=== PATIENT | female | born 1940 | race Caucasian/White ===

== ENCOUNTER 2018-05-11 12:52 | Inpatient (IN) | payer OTHER ==
[~2018-05-11] VITALS: Ht 167.6 cm; Wt 58.7 kg
[~2018-05-11 12:52] MED LIST: AMIODORONE; LORA-655 PO; MET25T PO
[2018-05-11 13:00] VITALS: BP 112/60
[2018-05-11] MEDS ORDERED: HYDROcodone-ACET 5/325MG TAB PO PRN (13:15)
[2018-05-11] MEDS ORDERED: FUROSEMIDE 20 MG/2 ML VIAL IV ONE (13:30)
[2018-05-11] MEDS ORDERED: POTASSIUM CHL 20 Meq TABLET PO ONE (13:30)
[2018-05-11 14:30] VITALS: BP 116/68
[2018-05-11] MEDS ORDERED: AMOX500T86 PO ×2 (15:47→15:59)
[2018-05-11] MEDS ORDERED: MISC4CAP PO (15:47)
[2018-05-11] MEDS: CEPHALEXIN 250 MG CAP PO SCH ×2 (16:49→22:00)
[2018-05-11 17:00] VITALS: BP 115/50
[2018-05-11 17:34] LABS: Basophils # (auto) 0 uL; Basophils % (auto) 0.4 % (0.0-2.0); Eosinophils # (auto) 0.2 uL; Eosinophils % (auto) 1.8 % (0.0-7.0); Hematocrit 37.8 % (36.0-46.0); Hemoglobin 12.4 g/dL (12.2-16.2); Lymphocytes # (auto) 1.9 uL; Lymphocytes % (auto) 17.1 % (10.0-50.0); Mean Corpuscular Hemoglobin 31.8 pg (28.0-32.0); Mean Corpuscular Hgb Conc. 32.9 g/dL (32.0-36.0); Mean Corpuscular Volume 96.7 fL (80.0-100.0); Monocytes # (auto) 0.9 uL; Monocytes % (auto) 8.2 % (0.0-12.0); Neutrophils % (auto) 72.5 % (37.0-80.0); Nucleated Red Blood Cells % 0.1 %; Platelet Count (auto) 230 10^3/uL (140-450); Red Blood Cells 3.91 10^6/uL (4.0-5.20); Red Cell Distribution Width 14.3 % (11.8-14.3)
[2018-05-11 17:35] LABS: INR 0.96 (0.9-1.15); Partial Thromboplastin Time 27.5 sec (23.78-33.04); Prothrombin Time 10.3 sec (9.27-12.13)
[2018-05-11 17:39] LABS: Albumin 3.3 g/dL (3.4-5.0); Bilirubin, Total 0.4 mg/dL (0.2-1.0); Calcium 8.2 mg/dL (8.5-10.1); Potassium 3.2 mmol/L (3.5-5.1); Total Protein 8.1 g/dL (6.4-8.2)
[2018-05-11 22:00] VITALS: BP 106/51
[2018-05-11] MEDS ORDERED: traZODone HCL 50 MG TAB PO SCH (22:00)
[2018-05-12] MEDS ORDERED: DIGO0.1262 PO (02:45)
[2018-05-12] MEDS ORDERED: ASPI81TA27 PO (02:45)
[2018-05-12] MEDS ORDERED: CLON1TAB4 PO (02:45)
[2018-05-12] MEDS ORDERED: ACET-1156 PR (02:45)
[2018-05-12] MEDS ORDERED: SERT25TA84 PO (02:45)
[2018-05-12] MEDS ORDERED: FAM20T PO (02:45)
[2018-05-12] MEDS ORDERED: LOPE2CAP PO (02:45)
[2018-05-12] MEDS ORDERED: POTA10TA51 PO (02:45)
[2018-05-12] MEDS ORDERED: TRAZ50TA2 PO (02:45)
[2018-05-12] MEDS ORDERED: PRO10T PO (02:45)
[2018-05-12] MEDS ORDERED: DEXT1LIQ32 PO (02:45)
[2018-05-12] MEDS ORDERED: GABA300C10 PO (02:45)
[2018-05-12] MEDS ORDERED: IBUP400T21 PO (02:45)
[2018-05-12] MEDS ORDERED: MORP15TA PO (02:45)
[2018-05-12] MEDS ORDERED: BISA10SU12 RE (02:45)
[2018-05-12] MEDS ORDERED: HAL5T PO (02:45)
[2018-05-12] MEDS ORDERED: AMIO200T33 PO (02:45)
[2018-05-12] MEDS ORDERED: FURO40TA PO (02:45)
[2018-05-12] MEDS ORDERED: HYDR-4683 PO (02:45)
[2018-05-12 05:00] VITALS: BP 117/58
[2018-05-12] MEDS: CEPHALEXIN 250 MG CAP PO SCH (05:19)
[2018-05-12 09:00] VITALS: BP 120/52
[2018-05-12] MEDS ORDERED: POTASSIUM CHL 20 Meq TABLET PO SCH (10:00)
[2018-05-12] MEDS ORDERED: AMIODARONE HCL 200 MG TAB PO SCH (10:00)
[2018-05-12] MEDS ORDERED: DIGOXIN 0.125 MG TAB PO SCH (10:00)
[2018-05-12] MEDS ORDERED: ASPirin 81 mg TAB PO SCH (10:00)
[2018-05-12] MEDS ORDERED: SERTRALINE HCL 50 MG TAB PO SCH (10:00)
[2018-05-12] MEDS ORDERED: FUROSEMIDE 40 MG TAB PO SCH (10:00)
[2018-05-12] MEDS ORDERED: FAMOTIDINE 20 MG TAB PO SCH (10:00)
[2018-05-12] MEDS ORDERED: GABAPENTIN 300 MG CAP PO SCH (10:00)
== END 2018-05-12 09:50 | disposition home health service (06) | DRG 291 ==
LOC: WEST WING 12:52
PROVIDERS: ADMIT Internal Medicine; ATTEND Internal Medicine
DX: I50.43 Acute on chronic combined systolic (congestive) and diastolic (congestive) heart failure (principal); L89.153 Pressure ulcer of sacral region, stage 3; L97.429 Non-pressure chronic ulcer of left heel and midfoot with unspecified severity; L97.919 Non-pressure chronic ulcer of unspecified part of right lower leg with unspecified severity; F03.90 Unspecified dementia, unspecified severity, without behavioral disturbance, psychotic disturbance, mood disturbance, and anxiety; M41.9 Scoliosis, unspecified; I73.9 Peripheral vascular disease, unspecified; I48.91 Unspecified atrial fibrillation; J44.9 Chronic obstructive pulmonary disease, unspecified; Z88.0 Allergy status to penicillin; Z88.5 Allergy status to narcotic agent
CPT/HCPCS: 36415; 71045; 80053; 80162; 85025; 85610; 85730; 87081; 93306

== ENCOUNTER 2019-06-21 08:17 | Inpatient (IN) | payer MEDICARE ==
[~2019-06-21] VITALS: Ht 162.6 cm; Wt 56.4 kg
--- NOTE | 2019-06-21 08:15 | NUR ---
Direct Admit Note: SANTO KNAPP admitted to [facility] unit as a direct admit per MD order. Patient oriented to ZEE POE, RN primary RN, unit, room, bed, and unit policies regarding patient care and visiting hours. Patient weighed by bedscale and encouraged to call if they need something. All questions and concerns addressed, patient verbalized understanding. MD notified of patients arrival.
[~2019-06-21 08:17] MED LIST changes: +ACET-1156 PR; +AMIO200T33 PO; -AMIODORONE; +AMOX500T86 PO; +ASPI-404 PO; +BISA10SU12 RE; +CLON1TAB10 PO; +DEXT1LIQ PO; +DIGO0.1262 PO; +FAM20T PO; +FURO1TAB31 PO; +GABA300C10 PO; +HAL5T PO; +HYDR-4833 PO; +IBUP400T21 PO; +LOPE2CAP PO; -LORA-655 PO; -MET25T PO; +MISC4CAP PO; +MORP15TA PO; +POTA10TA51 PO; +PRO10T PO; +SERT25TA84 PO; +TRAZ50TA2 PO
--- NOTE | 2019-06-21 08:25 | NUR ---
Dr. Sanz paged for orders.
--- NOTE | 2019-06-21 08:35 | NUR ---
Dr. Sanz called back with one order. Stated he would place more once he rounded on the patient.
[2019-06-21 08:58] VITALS: BP 148/61
[2019-06-21 09:00] VITALS: BP 148/61
[2019-06-21 13:00] VITALS: BP 110/55
[2019-06-21] MEDS ORDERED: POTASSIUM CHL 20 Meq TABLET PO ONE (13:00)
[2019-06-21] MEDS ORDERED: ACETAMINOPHEN 500 MG TAB PO PRN (13:00)
[2019-06-21] MEDS ORDERED: FUROSEMIDE 40 MG TAB PO ONE (13:00)
[2019-06-21] MEDS ORDERED: HYDROcodone-ACET 5/325MG TAB PO PRN (13:00)
--- NOTE | 2019-06-21 13:55 | NUR ---
IV insertion: IV access obtained, via clean sterile technique by inserting 22 gauge catheter at left forearm after 1 attempt. IV secured properly. No trauma to site. Patient tolerated well.
[2019-06-21 14:00] LABS: Basophils # (auto) 0 uL; Basophils % (auto) 0.5 % (0.0-2.0); Eosinophils # (auto) 0.2 uL; Eosinophils % (auto) 2.1 % (0.0-7.0); Hematocrit 40.1 % (36.0-46.0); Hemoglobin 13.6 g/dL (12.2-16.2); Lymphocytes # (auto) 2.2 uL; Lymphocytes % (auto) 22.5 % (10.0-50.0); Mean Corpuscular Hemoglobin 33.6 pg (28.0-32.0); Mean Corpuscular Volume 98.7 fL (80.0-100.0); Monocytes # (auto) 0.7 uL; Monocytes % (auto) 7.1 % (0.0-12.0); Neutrophils # (auto) 6.5 uL; Neutrophils % (auto) 67.8 % (37.0-80.0); Nucleated Red Blood Cells % 0.1 %; Platelet Count (auto) 268 10^3/uL (140-450); Red Blood Cells 4.06 10^6/uL (4.0-5.20); Red Cell Distribution Width 13.8 % (11.8-14.3); White Blood Cell 9.6 10^3/uL (4.4-10.8)
--- NOTE | 2019-06-21 14:08 | NUR ---
Admit EKG ordered by Dr. Paige. EKG performed ay 1404. Read by Dr. Hickey at 1411.
[2019-06-21 14:16] LABS: Albumin 2.7 g/dL (3.4-5.0); BUN/Creatinine Ratio 21.8; Calcium 8.1 mg/dL (8.5-10.1); Potassium 4.2 mmol/L (3.5-5.1)
[2019-06-21 14:19] LABS: Bilirubin, Total 0.3 mg/dL (0.2-1.0); Total Protein 6.8 g/dL (6.4-8.2)
--- NOTE | 2019-06-21 15:06 | NUR ---
Patient unable to recall list of home medications. Family asked to bring in list of home meds.
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
[2019-06-21 17:00] VITALS: BP 109/54
--- NOTE | 2019-06-21 18:26 | NUR ---
Attempted to obtain urine sample via bedpan. This nurse was unsuccessful. Will endorse to ROSA HENDRICKS.
--- NOTE | 2019-06-21 19:19 | NUR ---
MRSA swab collected and sent.
--- NOTE | 2019-06-21 19:20 | NUR ---
Closing note: Patient laying in bed. No S/S of pain, SOB or distess at this time. Even and unlabored breathing. Patient turned at this time. This nurse unable to obtain urine sample, endorsed to NOC RN. Care endorsed to NOC RN Patricia.
--- NOTE | 2019-06-21 19:21 | NUR ---
Opening Shift Note Received report from RN Asha and assumed care of patient, awake and alert x 1. No S/S of distress/SOB or pain. Instructed patient to call for assist if needed , call light within reach. Bed alarm on for safety. Will continue to monitor .
[2019-06-21 20:28] LABS: Urine Bacteria MANY /hpf (None Seen); Urine Blood 2+ /uL (Negative); Urine Mucus FEW (None Seen); Urine Specific Gravity 1.021 (1.001-1.035); Urine WBC 59 /hpf (0 - 5)
[2019-06-21 23:49] VITALS: BP 115/57
--- NOTE | 2019-06-22 02:21 | NUR ---
Patient bathe/linen change Patient had incontinent urine. Perineal care done .Skin integrity assessed for any changes. Linens changed. Patient repositioned for comfort.
[2019-06-22 05:47] VITALS: BP_SYST 116; BP_SYST 133; BP_DIAS 54; BP_DIAS 79
--- NOTE | 2019-06-22 06:10 | NUR ---
Pain: Patient c/o toothache but refused to take any pain medication.Will give report to incoming RN.
--- NOTE | 2019-06-22 07:20 | NUR ---
Open Shift Note Received report on patient, awake and sitting up in bed. Patient is confused on time of day but able to state name, place and situation. Patient reoriented to time and opened blinds to allow for light. Patient verbalized understanding but quickly stated again that she thought it was night time. Patient oriented to time of day and that breakfast would be arriving shortly. Patient verbalized understanding. Patient encouraged to press call light for assistance and if they have the urge to use the restroom. Bed in lowest locked position, side rails up x2 and call light within reach. Will continue to monitor.
[2019-06-22 09:00] VITALS: BP 112/47
[2019-06-22] MEDS ORDERED: GABAPENTIN 300 MG CAP PO SCH (10:00)
[2019-06-22] MEDS ORDERED: DIGOXIN 0.125 MG TAB PO SCH (10:00)
[2019-06-22] MEDS ORDERED: ASPirin 81 mg TAB PO SCH (10:00)
--- NOTE | 2019-06-22 10:22 | NUR ---
WOUND CARE NOTE: IN TO SEE PATIENT AT THIS TIME PER WOUND CARE CONSULT REQUEST. PATIENT WAS RECENTLY ADMITTED TO [facility] WITH DIAGNOSIS OF ALOC. SHE HAS CURRENT [place] SCORE OF 14. PATIENT IS INCONTINENT OF BOWEL AND BLADDER. SHE WEARS DIAPERS PER PATIENT STATEMENT. PATIENT EDUCATED IN WOUND CARE AND DIAPER USAGE AT THIS TIME, BUT PATIENT IS CONFUSED, TEACHING NOT SUCCESSFUL. PATIENT HAS MILD MASD WITH LIGHT RED ERYTHEMA NOTED TO SKIN ON PERINEUM, BUTTOCKS. SKIN REMAINS INTACT. MOISTURE BARRIER CREAM APPLIED, OPTIFOAM GENTLE SACRAL DRESSING APPLIED PREVENTATIVE. PATIENT WOULD BENEFIT FORM FREQUENT TURN SCHEDULE Q 2 HOURS, PRN CONDITION PERMITS, WITH PRESSURE REDISTRIBUTION USING PILLOWS/WEDGES, BID/PRN APPLICATION WITH MOISTURE BARRIER CREAM, OPTIFOAM GENTLE SACRAL DRESSING, SKIN/WOUND CARE PLAN, CONTINUED MONITORING BY WOUND CARE TEAM. Addendum: 06/22/19 at 1919 by Tracy Dill RN Amended: Links added.
[2019-06-22] MEDS: AMIODARONE HCL 200 MG TAB PO SCH (10:42)
[2019-06-22] MEDS: FAMOTIDINE 20 MG TAB PO SCH (10:42)
[2019-06-22] MEDS: SERTRALINE HCL 50 MG TAB PO SCH (10:43)
[2019-06-22] MEDS: POTASSIUM CHL 20 Meq TABLET PO SCH (10:43)
[2019-06-22] MEDS: FUROSEMIDE 40 MG TAB PO SCH (10:44)
[2019-06-22] MEDS ORDERED: cefTRIAXone 1GM/50ML D5W 50 ML IV ONE (11:45)
[2019-06-22 13:00] VITALS: BP 116/54
[2019-06-22 16:57] VITALS: BP 126/48
--- NOTE | 2019-06-22 18:59 | NUR ---
End of Shift Patient sitting up in bed, shows no signs of distress at this time. Bed in lowest locked position, side rails up x2 and call light within reach.
--- NOTE | 2019-06-22 20:05 | NUR ---
open note assumed care of pt. upon entering room pt awake, alert and disoriented. pt knows self, unable to state where she is, why she is here and what the date is. pt on room air, no distress noted. pt denies any pain. pt updated on plan of care, to which she listening passively. bed locked, low and 2x rails up. call light in reach, will round q1hr and prn.
[2019-06-22 22:19] VITALS: BP 116/71
--- NOTE | 2019-06-22 22:45 | NUR ---
pt cleansed and complete linen change after bed saturated with urine, pt tolerated well.
[2019-06-23 05:15] VITALS: BP 119/50
--- NOTE | 2019-06-23 07:25 | NUR ---
Open Shift Note Received report on patient, awake and sitting up in bed. Patient shows no signs of distress at this time. Patient states she remembers current nurse was her same nurse yesterday. Discussed POC with patient with reinforcement needed. Bed in lowest locked position, side rails up x2, call light within reach and bed alarm on. Will continue to monitor.
[2019-06-23] MEDS: cefTRIAXone 1GM/50ML D5W 50 ML IV SCH (08:38)
[2019-06-23 09:27] VITALS: BP 147/51
[2019-06-23] MEDS: FUROSEMIDE 40 MG TAB PO SCH (10:49)
[2019-06-23] MEDS: POTASSIUM CHL 20 Meq TABLET PO SCH (10:49)
[2019-06-23] MEDS: FAMOTIDINE 20 MG TAB PO SCH (10:49)
[2019-06-23] MEDS: SERTRALINE HCL 50 MG TAB PO SCH (10:50)
[2019-06-23] MEDS: AMIODARONE HCL 200 MG TAB PO SCH (10:50)
[2019-06-23 13:04] VITALS: BP 120/56
--- NOTE | 2019-06-23 14:12 | NUR ---
PT PATIENT REFUSED PHYSICAL THERAPY. ELADIO ALFONSO WAS NOTIFIED. Addendum: 06/23/19 at 1414 by ORSA SOLOMON PTT Amended: Links added.
--- NOTE | 2019-06-23 16:28 | NUR ---
IV Insertion IV inserted using clean sterile technique in to the right forearm 20g. Patient tolerated well. Infiltrated IV removed from left forearm using clean sterile technique, dressing applied. Patient anxious but tolerated well.
[2019-06-23 17:00] VITALS: BP 93/49
--- NOTE | 2019-06-23 18:47 | NUR ---
Closing Note Patient sitting up in bed eating dinner. Shows no signs of distress at this time. Bed in lowest locked position, side rails up x2 and call light within reach.
[2019-06-23 22:00] VITALS: BP 110/56
[2019-06-24 05:00] VITALS: BP 123/70
--- NOTE | 2019-06-24 08:05 | NUR ---
OPENING SHIFT NOTE: PATIENT ASLEEP RESTING IN BED. RESPIRATIONS EVEN AND UNLABORED. BED IN LOWEST LOCKED POSITION. PATIENT LYING LEFT SIDE. CALL LIGHT PLACED WITHIN REACH. UPDATED CARE BOARD, WILL CONTINUE TO MONITOR.
[2019-06-24] MEDS: AMIODARONE HCL 200 MG TAB PO SCH (09:04)
[2019-06-24] MEDS: cefTRIAXone 1GM/50ML D5W 50 ML IV SCH (09:04)
[2019-06-24] MEDS: POTASSIUM CHL 20 Meq TABLET PO SCH (09:05)
[2019-06-24] MEDS: SERTRALINE HCL 50 MG TAB PO SCH (09:06)
[2019-06-24] MEDS: FAMOTIDINE 20 MG TAB PO SCH (09:06)
[2019-06-24] MEDS: FUROSEMIDE 40 MG TAB PO SCH (09:06)
[2019-06-24 09:14] VITALS: BP 111/62
--- NOTE | 2019-06-24 09:49 | NUR ---
PT PATIENT REFUSED PHYSICAL THERAPY TODAY. ELADIO MCCRARY WAS NOTIFIED. Addendum: 06/24/19 at 0950 by ROSA SOLOMON PTT Amended: Links added.
--- NOTE | 2019-06-24 10:08 | NUR ---
PATIENT CARE: PATIENT UNDERPAD CHANGED. LIGHT CLEMENTINE URINE NOTED STRONG ODOR. PATIENT SUSPICIOUS OF CARE STATING, "ARE YOU TRYING TO POISON ME, I WANT TO TALK TO MY BROTHER." PATIENT EASILY RE-ORIENTED, CALM, AND GUARDED. WILL CONTINUE TO MONITOR, AND ASSESS SKIN FOR MAD.
[2019-06-24 13:08] VITALS: BP 125/61
--- NOTE | 2019-06-24 13:19 | NUR ---
Discharge planning per consult, patient has orders to dc to SNF down the [place] per request of family as patient has Dementia. Brother Mook had no preference, just closer to [place] where he resides as his plan is for placement near him upon her discharge from SNF. Referral was sent to [facility] [phone], placed a follow up call, spoke with Maritza and was advised that they will accept this patient into room [address] Garcia. Transportation was arranged with [facility] [phone] and scheduled production support engineer time is for 1600. Nurse Graf was advised of dc plan. Addendum: 06/24/19 at 1322 by TRENT BENSON Amended: Links added.
--- NOTE | 2019-06-24 13:36 | NUR ---
ATTEMPT MADE TO CONTACT NEXT OF KIN ON FILE. VOICEMAIL LEFT BY THIS RN.
--- NOTE | 2019-06-24 14:26 | NUR ---
SUCCESSFUL ATTEMPT TO REACH KRISTINA. MADE AWARE OF SNF TRANSFER FACILITY, TIME, AND BED ASSIGNMENT. KRISTINA TO ARRIVE AT ADMITTING FACILITY WHEN SISTER ARRIVES. THIS RN WILL NOTIFY WHEN PATIENT IS LEAVING VIA EMR.
--- NOTE | 2019-06-24 14:28 | NUR ---
REPORT GIVEN TO YOUNG HENDRICKS AT [facility].
--- NOTE | 2019-06-24 14:37 | NUR ---
DISCHARGE PAPERWORK UNABLE TO BE SIGNED BY PATIENT WHO IS A/OX1, OR PATIENT'S CAREGIVER. CO-SIGN OBTAINED BY SECOND RN.
--- NOTE | 2019-06-24 14:58 | NUR ---
assessment Patient is a 79 year old female who is confused. Prior to admission per patients brother Mook patient resided at [facility] assisted living in [place]. Per Mook patient has a wheelchair for home use. Per Mook patient receives 1020.00 per month. Mook is working with Darryl Wasserman of [facility] to obtain Medi-severino for patient. Patient has a SNF order and Mook agrees to SNF. [facility]ana HARRISON is satisfying order. Mook verbalized understanding and agreed with discharge plan to SNF in [place]. Addendum: 06/24/19 at 1503 by Kristy BOLTON Amended: Links added.
--- NOTE | 2019-06-24 16:22 | NUR ---
PATIENT DISCHARGE TO SNF. REPORT GIVEN TO EMT'S. PATIENT GIVEN ALL EDUCATION AND DOCUMENTATION. PATIENT LEFT WITH ALL BELONGINGS. IV DISCONTINUED, MANUAL PRESSURE APPLIED. FAMILY CONTACTED AND MADE AWARE OF PATIENT'S DISCHARGE.
== END 2019-06-24 16:30 | DRG 292 ==
LOC: TELE 08:17 → EAST 08:18 → TELE-EAST 18:32 → EAST 06-22 04:17
PROVIDERS: ADMIT Internal Medicine; ATTEND Internal Medicine
DX: I50.43 Acute on chronic combined systolic (congestive) and diastolic (congestive) heart failure (principal); G93.40 Encephalopathy, unspecified; N39.0 Urinary tract infection, site not specified; R00.1 Bradycardia, unspecified; F03.90 Unspecified dementia, unspecified severity, without behavioral disturbance, psychotic disturbance, mood disturbance, and anxiety; I48.91 Unspecified atrial fibrillation; I73.9 Peripheral vascular disease, unspecified; M41.9 Scoliosis, unspecified
CPT/HCPCS: 36415; 71045; 80053; 80162; 81001; 85025; 87081; 87086; G0378; J0696